=== PATIENT | female | born 2000 | race African-American/Black ===

== ENCOUNTER 2018-08-28 01:33 | Emergency (ER) | payer MEDICAID ==
[~2018-08-28] VITALS: Ht 172.7 cm; Wt 66.0 kg
[2018-08-28 02:00] VITALS: BP 149/95
== END 2018-08-28 07:02 | disposition left against medical advice (07) ==
LOC: ER 01:33
DX: R68.84 Jaw pain (principal); Z53.21 Procedure and treatment not carried out due to patient leaving prior to being seen by health care provider

== ENCOUNTER 2018-08-30 00:41 | Emergency (ER) | payer MEDICAID ==
[~2018-08-30] VITALS: Ht 172.7 cm; Wt 66.0 kg
[2018-08-30 04:53] VITALS: BP 115/62
== END 2018-08-30 04:55 | disposition home or self-care (01) ==
LOC: ER 01:18
DX: J06.9 Acute upper respiratory infection, unspecified (principal); J45.909 Unspecified asthma, uncomplicated; F12.10 Cannabis abuse, uncomplicated
CPT/HCPCS: 71045; 81025; 93005; 99283

== ENCOUNTER 2018-09-13 23:39 | Emergency (ER) | payer MEDICAID ==
[~2018-09-13] VITALS: Ht 172.7 cm; Wt 72.0 kg
[2018-09-14 04:30] VITALS: BP 115/87
== END 2018-09-14 05:10 | disposition home or self-care (01) ==
LOC: ER 23:39
DX: R68.84 Jaw pain (principal); Z76.0 Encounter for issue of repeat prescription; J45.909 Unspecified asthma, uncomplicated; F12.10 Cannabis abuse, uncomplicated; Z98.890 Other specified postprocedural states
CPT/HCPCS: 99282

== ENCOUNTER 2018-09-21 21:37 | Emergency (ER) | payer MEDICAID ==
[~2018-09-21] VITALS: Ht 172.7 cm; Wt 72.0 kg
[2018-09-22 02:02] VITALS: BP 119/68
== END 2018-09-22 02:03 | disposition home or self-care (01) ==
LOC: ER 21:37
DX: J06.9 Acute upper respiratory infection, unspecified (principal); J45.909 Unspecified asthma, uncomplicated; F12.10 Cannabis abuse, uncomplicated; H91.92 Unspecified hearing loss, left ear; Z98.890 Other specified postprocedural states
CPT/HCPCS: 71045; 99283

== ENCOUNTER 2018-11-18 00:39 | Emergency (ER) | payer MEDICAID ==
[~2018-11-18] VITALS: Ht 167.6 cm; Wt 68.0 kg
[2018-11-18 07:44] VITALS: BP 105/70
== END 2018-11-18 07:49 | disposition home or self-care (01) ==
LOC: ER 00:54
DX: F98.9 Unspecified behavioral and emotional disorders with onset usually occurring in childhood and adolescence (principal); J45.909 Unspecified asthma, uncomplicated; F12.10 Cannabis abuse, uncomplicated
CPT/HCPCS: 99283